=== PATIENT | male | born 1990 | race Caucasian/White ===

== ENCOUNTER → 2020-05-19 21:33 | Outpatient (CLI) | payer OTHER, SELFPAY ==
[2020-05-19 11:25] LABS: D-Dimer 320 ng/mlFEU (<500)
== END ==
PROVIDERS: PCP Pediatrics; Visit Provider Physician Assistant Medical
DX: M79.662 Pain in left lower leg (principal)
CPT/HCPCS: 36415; 85379

== ENCOUNTER 2020-05-21 18:27 | Outpatient (REF) | payer OTHER, SELFPAY ==
[2020-05-23 00:02] LABS: COVID-19 RT-PCR UVMMC Result Negative (Negative)
== END 2020-05-21 18:47 ==
LOC: NCHCN 18:27
PROVIDERS: PCP Pediatrics; Visit Provider Physician Assistant
DX: Z20.828 Contact with and (suspected) exposure to other viral communicable diseases (principal)
CPT/HCPCS: U0003